=== PATIENT | male | born 1975 | race Caucasian/White ===

== ENCOUNTER 2020-07-13 19:57 | Emergency (ER) | payer OTHER ==
[2020-07-13 20:35] VITALS: PULSE 78
[2020-07-13] MEDS ORDERED: DIPH,PERTUS(ACELL)TETVAC-LF 0.5 ML VIAL IM ONE (22:00)
[2020-07-13] MEDS ORDERED: LIDOCAINE/EPINEPHR/TETRACAINE 5 ML BOTTLE TOPICAL ONE (22:00)
[2020-07-13] MEDS ORDERED: GELATIN SPONGE,ABSORB (SMALL) 1 EACH SPONGE TOPICAL STA (22:01)
--- NOTE | 2020-07-13 22:24 | ED ---
Wound/Laceration HPI - General Chief Complaint: Wound/Laceration Stated Complaint: cut tip of finger off Time Seen by Provider: 07/13/20 21:40 Source: family Mode of arrival: ambulatory Limitations: no limitations - History of Present Illness Initial Comments: 45-year-old male patient presents to the emergency department today for evaluation of injury to the right thumb. States he was slicing a cucumber with a mandolin when he accidentally cut his finger. States he is unable to get the bleeding to stop so presented here for further evaluation. He is unsure when his last tetanus vaccine was administered. Denies any use of blood thinning medications. Denies any numbness or tingling to the finger. Denies any other injuries or concerns. - Related Data Allergies Allergy/AdvReac Type Severity Reaction Status Date / Time Penicillins Allergy Anaphylaxis Verified 07/13/20 20:34 Review of Systems ROS Statement: Those systems with pertinent positive or pertinent negative responses have been documented in the HPI. ROS Other: All systems not noted in ROS Statement are negative. Past Medical History Additional Past Medical History / Comment(s): IBS History of Any Multi-Drug Resistant Organisms: None Reported Past Surgical History: Hernia Repair, Orthopedic Surgery Past Psychological History: No Psychological Hx Reported Smoking Status: Never smoker Past Alcohol Use History: None Reported Past Drug Use History: None Reported General Exam Limitations: no limitations General appearance: alert, in no apparent distress Respiratory exam: Present: normal lung sounds bilaterally. Absent: respiratory distress, wheezes, rales, rhonchi, stridor Cardiovascular Exam: Present: regular rate, normal rhythm, normal heart sounds. Absent: systolic murmur, diastolic murmur, rubs, gallop, clicks Extremities exam: Present: full ROM, normal capillary refill, other (There is skin avulsion injury to the distal tip of the thumb, active bleeding. Skin is otherwise pink, warm, dry. Cap refill less than 3 seconds. Radial pulses 2+.). Absent: normal inspection, tenderness, pedal edema, joint swelling, calf tenderness Neurological exam: Present: alert, oriented X3, CN II-XII intact Psychiatric exam: Present: normal affect, normal mood Skin exam: Present: warm, dry, intact, normal color. Absent: rash Course Vital Signs 07/13/20 07/13/20 20:30 23:09 Temperature 98.7 F 98.5 F Pulse Rate 78 78 Respiratory 20 18 Rate Blood Pressure 136/92 134/84 O2 Sat by Pulse 99 97 Oximetry Medical Decision Making - Medical Decision Making 45-year-old male patient presents to the emergency department today for evaluation of injury to the right thumb. Physical examination did reveal a skin avulsion injury to the distal tip of the thumb. There was active bleeding. Let solution was applied which did slow the bleeding somewhat. Gelfoam was placed and pressure held. Dressing applied. Dressing was dry and intact at time of discharge. He is educated regarding wound care and signs or symptoms of infection. He is instructed to follow-up with his primary care physician for recheck in 1-2 days. Return parameters were discussed in detail. He verbalizes understanding and agrees with this plan. My attending is Dr. Wright. Disposition Clinical Impression: Avulsion of skin of left thumb Disposition: HOME SELF-CARE Condition: Good Instructions (If sedation given, give patient instructions): Skin Avulsion (ED) Additional Instructions: Keep dressing in place for the next 24 hours. Try to leave the Gelfoam in place for 2 days. Soak with water and remove on day. Monitor for signs or symptoms of infection including redness, swelling, drainage of pus, fever, or chills. Follow-up with her primary care physician for recheck in 1-2 days. Return for any new, worsening, or concerning symptoms. Is patient prescribed a controlled substance at d/c from ED?: No Referrals: Nonstaff,Physician [Primary Care Provider] - 1-2 days
[2020-07-13] MEDS ORDERED: LIDOCAINE/EPINEPHR/TETRACAINE 5 ML BOTTLE TOPICAL STA (22:34)
[2020-07-13 23:10] VITALS: BP 134/84; RESP 18; TEMP 98.5
== END 2020-07-13 23:11 | disposition home or self-care (01) ==
LOC: EC 19:57
DX: S61.002A Unspecified open wound of left thumb without damage to nail, initial encounter (principal); K58.9 Irritable bowel syndrome, unspecified; Z23 Encounter for immunization; Z88.0 Allergy status to penicillin; W27.4XXA Contact with kitchen utensil, initial encounter; Y93.G9 Activity, other involving cooking and grilling
CPT/HCPCS: 90471; 90715; 99282

== ENCOUNTER 2021-12-05 06:17 | Day surgery (SDC) | payer OTHER ==
[~2021-12-05 06:17] MED LIST: LACTATED RINGERS 1,000 ML IV SCH; LIDOCAINE 1% (10MG/ML) FOR IV START INTRADERMA PRN
[2021-12-05 06:40] VITALS: RESP 20; TEMP 98.8
[2021-12-05] MEDS ORDERED: fentaNYL (PF) 50 MCG/ML 2 ML AMP ONE (07:09)
[2021-12-05] MEDS ORDERED: MIDAZOLAM 2 MG/2 ML VIAL ONE (07:09)
[2021-12-05] MEDS ORDERED: PROPOFOL 10 MG/ML 20 ML VIAL IV ONE (07:09)
--- NOTE | 2021-12-05 07:31 | P.PCN ---
Date of Procedure: 12/05/21 Procedure(s) Performed: BRIEF HISTORY: Patient is a 46-year-old pleasant white male scheduled for an elective colonoscopy as a part of evaluation of change in bowel habits. Lately his been having 1 or 2 bowel movements daily but loose in consistency. PROCEDURE PERFORMED: Colonoscopy. PREOPERATIVE DIAGNOSIS: Change in bowel habits. IV sedation per Anesthesia. PROCEDURE: After informed consent was obtained, the patient, was brought into the endoscopy unit. IV sedation was administered by Anesthesia under continuous monitoring. Digital rectal examination was normal. Initially the Olympus CF-160 flexible video colonoscope was then inserted in the rectum, gradually advanced into the cecum without any difficulty. Careful examination was performed as the scope was gradually being withdrawn. Ileocecal valve and the appendiceal orifice were visualized and appeared normal. Prep was excellent. Mucosa of the cecum, ascending colon, transverse colon, descending colon, sigmoid colon, and rectum appeared normal. Retroflexion was performed in the rectum and no lesions were seen. The patient tolerated the procedure well. IMPRESSION: Normal-appearing colon from rectum to cecum with no evidence of colorectal neoplasia. RECOMMENDATIONS: Findings of this examination were discussed with the patient well as his family. He was advised to have a repeat screening colonoscopy in 10 years..
[2021-12-05 07:56] VITALS: BP 131/83; PULSE 64
== END 2021-12-05 08:07 | disposition home or self-care (01) ==
LOC: ORWHC2ENDO 06:17
PROVIDERS: ATTEND Internal Medicine Gastroenterology
DX: R19.4 Change in bowel habit (principal); F41.9 Anxiety disorder, unspecified; K58.9 Irritable bowel syndrome, unspecified; Z88.0 Allergy status to penicillin
CPT/HCPCS: 45378; J2250; J3010; J2704